=== PATIENT | female | born 1950 | race African-American/Black ===

== ENCOUNTER 2018-03-17 23:28 | Inpatient (IN) | payer OTHER ==
[~2018-03-17] VITALS: Ht 165.1 cm; Wt 65.8 kg
[2018-03-17] MEDS ORDERED: ACETAMINOPHEN 325MG TABLET PO STA (23:38)
[2018-03-17] MEDS ORDERED: FUROSEMIDE 40MG/4ML VIAL IV ONE (23:45)
[2018-03-18] VITALS (9 sets, daily range): BP systolic 172–213; BP diastolic 60–115
[2018-03-18 00:09] LABS: BASOPHILS % 1.4 % (0.0-2.0); EOSINOPHILS % 4.7 % (0.0-5.0); HEMATOCRIT. 32.7 % (36.0-48.0); HEMOGLOBIN. 10.6 g/dL (12.0-16.0); LYMPHOCYTES % 27.6 % (20.0-50.0); MEAN CORPUSCULAR HEMOGLOBIN 28.9 pg (28.0-32.0); MEAN PLATELET VOLUME 8.7 fl (7.4-10.4); NEUTROPHILS % 62.3 % (40.0-76.0); PLATELET 460 x1000/uL (130-400); RED BLOOD CELL COUNT 3.68 mill/uL (4.2-5.4); RED CELL DISTRIBUTION WIDTH 14.6 % (11.6-14.6)
[2018-03-18 00:19] LABS: CHLORIDE 108 mEq/L (98-107)
[2018-03-18 00:54] LABS: INR 1.1; PARTIAL THROMBOPLASTIN TIME 24.6 sec (23.4-31.0); PROTHROMBIN TIME 11.2 sec (9.1-11.1)
[2018-03-18] MEDS ORDERED: ASPIRIN 325MG EC TABLET PO SCH (02:00)
[2018-03-18] MEDS ORDERED: ACETAMINOPHEN 325MG TABLET PO PRN (07:00)
[2018-03-18] MEDS ORDERED: DIPHENHYDRAMINE 50MG/ML VIAL IV PRN (07:00)
[2018-03-18] MEDS ORDERED: IPRATROPIUM/ALBUTEROL 0.5-3(2.5)MG/3ML NEB INH PRN (07:00)
[2018-03-18] MEDS ORDERED: DOCUSATE SODIUM 100MG CAPSULE PO PRN (07:00)
[2018-03-18] MEDS ORDERED: MAGNESIUM/ALUMINUM HYDROXIDE/SIMETHICONE 30ML UDC PO PRN (07:00)
[2018-03-18] MEDS ORDERED: LORAZEPAM 2MG/ML CPJ IV PRN (07:00)
[2018-03-18] MEDS ORDERED: DEXTROSE 50% WATER 50ML SYRINGE IV PRN (07:00)
[2018-03-18] MEDS ORDERED: GUAIFENESIN 200MG/10ML SUGAR FREE UDC PO PRN (07:00)
[2018-03-18] MEDS ORDERED: ENOXAPARIN 40MG/0.4ML SYR SUBCUT SCH (07:00)
[2018-03-18] MEDS ORDERED: ONDANSETRON HCL 4MG/2ML INJ IV PRN (07:00)
[2018-03-18] MEDS: CLONIDINE 0.1MG TABLET PO PRN ×3 (08:18→22:37)
[2018-03-18] MEDS: INSULIN LISPRO 100 UNITS/ML SUBCUT SCH ×4 (08:20→21:00)
[2018-03-18] MEDS: BLOOD SUGAR DIAGNOSTIC STRIP TEST SCH ×4 (08:34→21:00)
[2018-03-18] MEDS ORDERED: ASPI-1159 PO (09:40)
[2018-03-18 10:35] LABS: LDL CHOLESTEROL 64 mg/dL (5-100)
[2018-03-18 10:36] LABS: HDL CHOLESTEROL 40 mg/dL (40-59)
[2018-03-18] MEDS: ASPIRIN 81MG EC TABLET PO SCH (10:55)
[2018-03-18] MEDS: ENOXAPARIN 30MG/0.3ML SYR SUBCUT SCH (10:56)
[2018-03-18] MEDS: HYDROMORPHONE HCL/PF 2MG/ML CPJ IV PRN (10:57)
[2018-03-18] MEDS ORDERED: LABETALOL 5MG/ML SYR 20 MG/4 ML SYRINGE IV NR (13:30)
[2018-03-18] MEDS: SODIUM CHLORIDE 0.9% INJ 3ML FLUSH IVF SCH ×2 (13:37→21:35)
[2018-03-18] MEDS ORDERED: ACET650S27 RC (15:16)
[2018-03-18] MEDS ORDERED: DOCU-150 PO (15:16)
[2018-03-18] MEDS ORDERED: CALC0.5C10 PO (15:19)
[2018-03-18] MEDS ORDERED: ATOR40TA70 PO (15:19)
[2018-03-18] MEDS ORDERED: CLON0.1T PO (15:19)
[2018-03-18] MEDS ORDERED: CALC1TAB17 PO (15:19)
[2018-03-18] MEDS ORDERED: FURO80TA3 PO (15:19)
[2018-03-18] MEDS ORDERED: FELO10TA PO (15:19)
[2018-03-18 15:32] LABS: CREATINE KINASE MB FRACTION 2.8 ng/mL (0.5-3.6)
[2018-03-18] MEDS: HYDROCODONE/ACETAMINOPHEN 10/325MG TABLET PO PRN (22:37)
[2018-03-19] VITALS (12 sets, daily range): BP systolic 146–197; BP diastolic 79–110
[2018-03-19 00:01] LABS: CREATINE KINASE MB FRACTION 3.2 ng/mL (0.5-3.6)
[2018-03-19] MEDS: INSULIN LISPRO 100 UNITS/ML SUBCUT SCH ×4 (06:04→21:00)
[2018-03-19] MEDS: BLOOD SUGAR DIAGNOSTIC STRIP TEST SCH ×4 (06:04→21:32)
[2018-03-19] MEDS: SODIUM CHLORIDE 0.9% INJ 3ML FLUSH IVF SCH ×3 (06:04→21:32)
[2018-03-19] MEDS: CLONIDINE 0.1MG TABLET PO PRN (06:05)
[2018-03-19 06:13] LABS: CHLORIDE 105 mEq/L (98-107)
[2018-03-19 06:22] LABS: EOSINOPHILS % 3.7 % (0.0-5.0); HEMATOCRIT. 28.7 % (36.0-48.0); HEMOGLOBIN. 9.7 g/dL (12.0-16.0); LYMPHOCYTES % 17.4 % (20.0-50.0); MEAN CORPUSCULAR HEMOGLOBIN 29.3 pg (28.0-32.0); MEAN CORPUSCULAR VOLUME 86.9 fL (81.0-99.0); MEAN PLATELET VOLUME 8.6 fl (7.4-10.4); MONOCYTES % 6.3 % (2.0-8.0); NEUTROPHILS % 71.6 % (40.0-76.0); PLATELET 306 x1000/uL (130-400); RED CELL DISTRIBUTION WIDTH 14.7 % (11.6-14.6)
[2018-03-19 06:25] LABS: T4 FREE 1.18 ng/dL (0.76-1.46)
[2018-03-19] MEDS: ENOXAPARIN 30MG/0.3ML SYR SUBCUT SCH (09:10)
[2018-03-19] MEDS: ASPIRIN 81MG EC TABLET PO SCH (09:10)
[2018-03-19] MEDS: LOSARTAN POTASSIUM 50 MG TABLET PO SCH (09:10)
[2018-03-19] MEDS: CLONIDINE 0.3MG TABLET PO PRN ×2 (10:20→18:09)
[2018-03-19] MEDS: HYDROMORPHONE HCL/PF 2MG/ML CPJ IV PRN (10:57)
[2018-03-19] MEDS ORDERED: IPRATROPIUM/ALBUTEROL 0.5-3(2.5)MG/3ML NEB HHN SCH (12:00)
[2018-03-19] MEDS: HYDROCODONE/ACETAMINOPHEN 10/325MG TABLET PO PRN (21:32)
[2018-03-20] VITALS (12 sets, daily range): BP systolic 130–182; BP diastolic 62–119
[2018-03-20] MEDS: HYDROCODONE/ACETAMINOPHEN 10/325MG TABLET PO PRN (04:00)
[2018-03-20] MEDS: SODIUM CHLORIDE 0.9% INJ 3ML FLUSH IVF SCH ×2 (05:53→14:00)
[2018-03-20] MEDS: BLOOD SUGAR DIAGNOSTIC STRIP TEST SCH ×3 (05:53→16:21)
[2018-03-20 07:11] LABS: BASOPHILS % 1.3 % (0.0-2.0); EOSINOPHILS % 6.5 % (0.0-5.0); HEMATOCRIT. 31.5 % (36.0-48.0); HEMOGLOBIN. 10.7 g/dL (12.0-16.0); LYMPHOCYTES % 22.8 % (20.0-50.0); MEAN CORPUSCULAR HEMOGLOBIN 29.5 pg (28.0-32.0); MEAN CORPUSCULAR VOLUME 86.8 fL (81.0-99.0); MONOCYTES % 7.3 % (2.0-8.0); NEUTROPHILS % 62.1 % (40.0-76.0); RED BLOOD CELL COUNT 3.63 mill/uL (4.2-5.4); RED CELL DISTRIBUTION WIDTH 14.3 % (11.6-14.6)
[2018-03-20] MEDS: INSULIN LISPRO 100 UNITS/ML SUBCUT SCH ×3 (07:20→16:21)
[2018-03-20] MEDS: ASPIRIN 81MG EC TABLET PO SCH (08:28)
[2018-03-20] MEDS: LOSARTAN POTASSIUM 50 MG TABLET PO SCH (08:28)
[2018-03-20] MEDS: ENOXAPARIN 30MG/0.3ML SYR SUBCUT SCH (08:29)
[2018-03-20 10:03] LABS: MEAN PLATELET VOLUME 8.9 fl (7.4-10.4); PLATELET 273 x1000/uL (130-400)
[2018-03-20] MEDS ORDERED: REGADENOSON 0.4 MG/5 ML IV ONE ×2 (10:30→11:55)
[2018-03-20] MEDS: CLONIDINE 0.3MG TABLET PO PRN (18:33)
[2018-03-20] MEDS ORDERED: CARVEDILOL 3.125 MG TABLET PO SCH (21:00)
== END 2018-03-20 20:20 | DRG 189 ==
LOC: ER 23:28 → 3WST 03-18 02:49 → ENRESERV 03-18 07:41
PROVIDERS: ADMIT Internal Medicine; ATTEND Internal Medicine
PROC: 5A09357 Assistance with Respiratory Ventilation, Less than 24 Consecutive Hours, Continuous Positive Airway Pressure (ICD-10-PCS; 2018-03-17)
PROC: 5A09357 Assistance with Respiratory Ventilation, Less than 24 Consecutive Hours, Continuous Positive Airway Pressure (ICD-10-PCS; principal; 2018-03-18)
PROC: 5A1D70Z Performance of Urinary Filtration, Intermittent, Less than 6 Hours Per Day (ICD-10-PCS; 2018-03-18)
PROC: 5A1D70Z Performance of Urinary Filtration, Intermittent, Less than 6 Hours Per Day (ICD-10-PCS; 2018-03-19)
DX: J96.00 Acute respiratory failure, unspecified whether with hypoxia or hypercapnia (principal); I50.43 Acute on chronic combined systolic (congestive) and diastolic (congestive) heart failure; N18.6 End stage renal disease; I13.2 Hypertensive heart and chronic kidney disease with heart failure and with stage 5 chronic kidney disease, or end stage renal disease; E46 Unspecified protein-calorie malnutrition; E87.2 Acidosis; R65.10 Systemic inflammatory response syndrome (SIRS) of non-infectious origin without acute organ dysfunction; J44.1 Chronic obstructive pulmonary disease with (acute) exacerbation; N39.0 Urinary tract infection, site not specified; E11.22 Type 2 diabetes mellitus with diabetic chronic kidney disease; Z99.2 Dependence on renal dialysis; D64.9 Anemia, unspecified; E78.5 Hyperlipidemia, unspecified; F17.210 Nicotine dependence, cigarettes, uncomplicated; I25.10 Atherosclerotic heart disease of native coronary artery without angina pectoris; Z95.1 Presence of aortocoronary bypass graft; Z88.8 Allergy status to other drugs, medicaments and biological substances; Z95.5 Presence of coronary angioplasty implant and graft; Z79.82 Long term (current) use of aspirin; Z71.6 Tobacco abuse counseling; Z68.24 Body mass index [BMI] 24.0-24.9, adult
CPT/HCPCS: 36415; 71045; 78452; 80048; 80061; 82550; 82553; 82962; 83036; 83605; 83880; 84439; 84443; 84484; 85379; 93005; 93017; 93306; 94640; 94660; 96374; 97116; 97162; 97530; 99285; A9500; J1170; J1650; J1940; J2060; J2785; J3490; J7620